=== PATIENT | female | born 1940 | race Caucasian/White ===

== ENCOUNTER → 2018-06-08 | Outpatient (CLI) | payer MEDICARE, OTHER ==
[~2018-06-08] MED LIST: ASCO500 PO; ASPI325 PO; B Complex1 EAC2 PO; CALCAVITD PO; LISI5 PO; METF850 PO; METO25ER PO; Multiple Vitam1 EAC1 PO; PIOG30 PO; UBID100 PO; Zocor40 MG PO
== END | disposition home or self-care (01) ==
LOC: LAB EV 15:48 → LAB SHORT 15:48
DX: E11.9 Type 2 diabetes mellitus without complications (principal)
CPT/HCPCS: 82043

== ENCOUNTER 2019-03-03 13:22 | Day surgery (SDC) | payer MEDICARE, OTHER ==
[~2019-03-03] VITALS: Ht 152.4 cm; Wt 99.1 kg
== END 2019-03-03 15:03 | disposition home or self-care (01) ==
LOC: ORSCSDS 13:22
PROVIDERS: Ophthalmology
PROC: 08RK3JZ Replacement of Left Lens with Synthetic Substitute, Percutaneous Approach (ICD-10-PCS; principal; 2019-03-03 15:00)
DX: H25.12 Age-related nuclear cataract, left eye (principal); I10 Essential (primary) hypertension; E11.9 Type 2 diabetes mellitus without complications; E66.01 Morbid (severe) obesity due to excess calories; Z68.41 Body mass index [BMI] 40.0-44.9, adult; Z79.899 Other long term (current) drug therapy
CPT/HCPCS: 82947; J2250; J3010; J7120; V2632

== ENCOUNTER → 2019-08-24 | Outpatient (CLI) | payer MEDICARE, OTHER ==
[~2019-08-24] MED LIST changes: +CEFUROXIME IO; +MONDOXYNE NL100 MG PO
== END | disposition home or self-care (01) ==
LOC: LAB SHORT 14:32 → LAB EV 14:32
DX: L73.9 Follicular disorder, unspecified (principal)
CPT/HCPCS: 87070; 87205

== ENCOUNTER → 2019-08-28 | Outpatient (CLI) | payer MEDICARE, OTHER | END | disposition home or self-care (01) | LOC: LAB SHORT 10:16 → LAB EV 10:16 | DX: D48.5 Neoplasm of uncertain behavior of skin (principal) | CPT/HCPCS: 87070; 87205 ==

== ENCOUNTER 2019-08-30 09:50 | Emergency (ER) | payer MEDICARE, OTHER ==
[~2019-08-30] VITALS: Ht 152.4 cm; Wt 99.8 kg
[~2019-08-30 09:50] MED LIST changes: -CEFUROXIME IO; -MONDOXYNE NL100 MG PO
[2019-08-30] MEDS ORDERED: CEFUROXIME IO (10:19)
[2019-08-30] MEDS ORDERED: MONDOXYNE NL100 MG PO (10:20)
== END 2019-08-30 11:09 | disposition home or self-care (01) ==
LOC: ER 09:50
DX: L02.211 Cutaneous abscess of abdominal wall (principal); I10 Essential (primary) hypertension; E11.9 Type 2 diabetes mellitus without complications; E78.00 Pure hypercholesterolemia, unspecified; G47.30 Sleep apnea, unspecified; Z87.891 Personal history of nicotine dependence; Z88.2 Allergy status to sulfonamides; Z88.8 Allergy status to other drugs, medicaments and biological substances; Z79.899 Other long term (current) drug therapy; Z79.82 Long term (current) use of aspirin; Z79.84 Long term (current) use of oral hypoglycemic drugs
CPT/HCPCS: 10060; 99282-25

== ENCOUNTER → 2020-02-10 | Outpatient (CLI) | payer MEDICARE, OTHER ==
[~2020-02-10] MED LIST changes: +CEFUROXIME IO; +MONDOXYNE NL100 MG PO
== END | disposition home or self-care (01) ==
LOC: LAB SHORT 16:47 → LAB 16:47
DX: L02.92 Furuncle, unspecified (principal)
CPT/HCPCS: 87070; 87075; 87205

== ENCOUNTER → 2022-04-21 | Outpatient (CLI) | payer MEDICARE, OTHER | END | disposition home or self-care (01) | LOC: LAB SHORT 14:50 → PLD 14:50 | DX: D22.61 Melanocytic nevi of right upper limb, including shoulder (principal) | CPT/HCPCS: 88305 ==

== ENCOUNTER → 2022-12-29 | Outpatient (CLI) | payer MEDICARE, OTHER | LOC: LAB SHORT 14:30 → LAB 14:30 | DX: R32 Unspecified urinary incontinence (principal) | CPT/HCPCS: 87086 ==